=== PATIENT | female | born 1985 | race Caucasian/White ===

== ENCOUNTER → 2023-08-18 | Outpatient (CLI) | payer OTHER ==
--- NOTE | 2023-08-18 14:41 | XR ---
EXAMINATION TYPE: XR sacrum coccyx DATE OF EXAM: 08/18/2023 COMPARISON: NONE HISTORY: Pain Three views are submitted. Sacrum is intact. SI joints are symmetric. Visualized pelvic structures intact. Partial sacralization or transition segment lowest lumbar vertebral body. Spina bifida occu lta sacrococcygeal junction. Slight cortical step off involving the anterior margin microcalcificatio ns junction IMPRESSION: 1. Slight cortical step off of the sacrococcygeal junction. Correlate for fracture. CT scan recommend ed..
== END | disposition home or self-care (01) ==
LOC: RADXRMAIN 13:34
PROVIDERS: ATTEND Family Medicine
DX: S30.0XXA Contusion of lower back and pelvis, initial encounter (principal); M53.3 Sacrococcygeal disorders, not elsewhere classified; Q76.0 Spina bifida occulta; Q76.49 Other congenital malformations of spine, not associated with scoliosis; X58.XXXA Exposure to other specified factors, initial encounter
CPT/HCPCS: 72220

== ENCOUNTER → 2023-09-23 | Outpatient (CLI) | payer OTHER ==
--- NOTE | 2023-09-26 07:23 | CT ---
EXAMINATION TYPE: CT sacrum wo con CT DLP: 692 mGycm, Automated exposure control for dose reduction was used. DATE OF EXAM: 09/23/2023 11:47 AM COMPARISON: Radiographs 08/18/2023. CLINICAL INDICATION:Female, 38 years old with history of M54.18, pain from fall TECHNIQUE: Multiple axial images were obtained from the midportion of T11 through the sacroiliac wolf nts. Soft tissue and bone windows in coronal and sagittal planes were obtained and reviewed. Contrast used: none. Oral contrast used: none. FINDINGS: There remains a cortical step-off of the S3 vertebrae. There is buckling of the fracture wi thout displacement. Lumbarization of S1 vertebrae with bilateral transverse process pseudoarthrosis o f the sacrum. The neural foramen appear patent. The soft tissues are grossly unremarkable. Visualized portions of the abdomen are unremarkable. No additional fractures visualized. IMPRESSION: 1. Confirmation of fracture seen on radiograph 08/18/2023 of the S3 vertebrae. There is buckling with out displacement. 2. 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
== END | disposition home or self-care (01) ==
LOC: RADCTMAIN 10:31
PROVIDERS: ATTEND Family Medicine
DX: S32.10XA Unspecified fracture of sacrum, initial encounter for closed fracture (principal); M54.18 Radiculopathy, sacral and sacrococcygeal region; M96.0 Pseudarthrosis after fusion or arthrodesis
CPT/HCPCS: 72192